=== PATIENT | male | born 1950 | race Caucasian/White ===

== ENCOUNTER 2019-06-13 10:22 | Day surgery (SDC) | payer MEDICARE, BC ==
[2019-06-13] MEDS: Polymyxin B/Trimethoprim 10 ML Bottle EYERT SCH ×4 (10:35→12:52)
[2019-06-13] MEDS: Brimonidine 0.2% Ophth Soln 5 ML Bottle EYERT SCH ×4 (10:40→12:52)
[2019-06-13] MEDS: Phenylephrine 2.5% Ophth Soln 2 ML Bot EYERT SCH ×6 (10:45→12:32)
[2019-06-13] MEDS: Tropicamide 1% Ophth Soln 15 ML Bottle EYERT SCH ×4 (10:51→11:56)
--- NOTE | 2019-06-13 11:03 | PCM.PREANE ---
Preanesthetic Assessment - Anesthesia/Transfusion/Family Hx Anesthesia History: Prior Anesthesia Without Reaction Family History of Anesthesia Reaction: No Transfusion History: No Prior Transfusion(s) Intubation History: Unknown - Review of Systems General: No Symptoms Pulmonary: No Symptoms (ETOH: few beers per week) Cardiovascular: No Symptoms (HTN), Palpitations Neurological: Numbness (bilateral feet right greater than left) Other: Reports: Sinus Problem - Physical Assessment NPO Status Date: 06/12/19 NPO Status Time: 22:00 Vital Signs: HR: 57 BP: 134/81 Temp: 16 Sat: 95% Resp: 16 Height: 1.83 m Weight: 97.522 kg ASA Class: 2 Mental Status: Alert & Oriented x3 Airway Class: Mallampati = 2 Dentition: Reports: Normal Dentition, [place](s), Caries Thyro-Mental Finger Breadths: 3 Mouth Opening Finger Breadths: 3 ROM/Head Extension: Full Lungs: Clear to Auscultation, Normal Respiratory Effort Cardiovascular: Regular Rate, Regular Rhythm, No Murmurs - Allergies Allergies/Adverse Reactions: Allergies Allergy/AdvReac Type Severity Reaction Status Date / Time No Known Allergies Allergy Verified 06/11/19 13:50 - Anesthesia Plan Pre-Op Medication Ordered: None - Acknowledgements Anesthesia Type Planned: MAC Pt an Appropriate Candidate for the Planned Anesthesia: Yes Alternatives and Risks of Anesthesia Discussed w Pt/Guardian: Yes Pt/Guardian Understands and Agrees with Anesthesia Plan: Yes PreAnesthesia Questionnaire - HOME MEDS Home Medications: Home Meds Chlorthalidone 25 mg PO DAILY 02/17/14 [History] Diltiazem [Diltiazem XR] 240 mg PO DAILY 06/11/19 [History] Fish Oil/DHA/EPA [Fish Oil 1,200 MG] 1 tab PO DAILY 06/11/19 [History] Fluticasone Propionate [Flonase] 1 spray NASBOTH DAILY 06/11/19 [History] Multivitamin [Daily Multiple Vitamin] 1 tab PO DAILY 06/11/19 [History] Olopatadine [Pataday 0.2% Ophth Soln] 1 drop EYEBOTH DAILY 06/11/19 [History] Potassium Chloride 20 meq PO DAILY 06/11/19 [History] - CURRENT (IN HOUSE) MEDS Current Meds: Current Medications Brimonidine Tartrate (Alphagan 0.2% Ophth Soln) 0 ml EYERT ASDIRECTED [facility] Stop: 06/13/19 23:00 Last Admin: 06/13/19 10:40 Dose: 1 drop Cefuroxime Sodium (Zinacef) 0 mg EYERT ASDIRECTED [facility] Stop: 06/13/19 23:00 Lidocaine HCl (Xylocaine-Mpf 1%) 1 ml INJECT ASDIRECTED [facility] Stop: 06/13/19 18:00 Phenylephrine HCl (Arturo-Synephrine 2.5% Ophth Soln) 0 ml EYERT ASDIRECTED [facility] Stop: 06/13/19 23:00 Last Admin: 06/13/19 10:56 Dose: 1 drop Pilocarpine HCl (Pilocar 4% Ophth Soln) 0 ml EYERT ASDIRECTED [facility] Stop: 06/13/19 23:00 Polymyxin/Trimethoprim Sulfate (Polytrim Ophth Soln) 0 ml EYERT ASDIRECTED [facility] Stop: 06/13/19 23:00 Last Admin: 06/13/19 10:35 Dose: 1 drop Tetracaine HCl (Tetracaine 0.5% Steri-Unit Melany) 0 ml EYERT ASDIRECTED [facility] Stop: 06/13/19 23:00 Tropicamide (Mydriacyl 1% Ophth Soln) 0 ml EYERT ASDIRECTED [facility] Stop: 06/13/19 23:00 Last Admin: 06/13/19 10:51 Dose: 1 drop
[2019-06-13] MEDS: Cefuroxime 10 MG/ML SYRINGE EYERT SCH ×2 (12:00→12:51)
[2019-06-13] MEDS: Tetracaine HCl/PF 0.5% 4 ML Bottle EYERT SCH ×3 (12:00→12:41)
[2019-06-13] MEDS: Lidocaine 1% PF 2 ML SDV INJECT SCH ×2 (12:00→12:41)
[2019-06-13] MEDS: Pilocarpine 4% Ophth Soln 15 ML Bot EYERT SCH ×2 (12:01→12:52)
--- NOTE | 2019-06-13 12:54 | PCM48HPAN ---
Post Anesthesia Note - EVALUATION WITHIN 48HRS OF ANESTHETIC Vital Signs in Normal Range: Yes Patient Participated in Evaluation: Yes Respiratory Function Stable: Yes Airway Patent: Yes Cardiovascular Function Stable: Yes Hydration Status Stable: Yes Pain Control Satisfactory: Yes Nausea and Vomiting Control Satisfactory: Yes Mental Status Recovered: Yes Vital Signs: Last Vital Signs Temp 36.2 C 06/13/19 10:30 Pulse 57 L 06/13/19 10:30 Resp 16 06/13/19 10:30 BP 134/81 06/13/19 10:30 Pulse Ox 95 06/13/19 10:30
== END 2019-06-13 13:02 | disposition home or self-care (01) ==
LOC: JD.SDS 10:22
PROVIDERS: ATTEND Ophthalmology
DX: H25.813 Combined forms of age-related cataract, bilateral (principal); H02.834 Dermatochalasis of left upper eyelid; H02.831 Dermatochalasis of right upper eyelid; H16.223 Keratoconjunctivitis sicca, not specified as Sjogren's, bilateral; H16.103 Unspecified superficial keratitis, bilateral; I10 Essential (primary) hypertension; Z87.891 Personal history of nicotine dependence
CPT/HCPCS: 66984; J0697; J2001; V2632

== ENCOUNTER 2019-07-09 07:17 | Day surgery (SDC) | payer MEDICARE, BC ==
[~2019-07-09 07:17] MED LIST: Cefuroxime 10 MG/ML SYRINGE EYELF SCH; Lidocaine 1% PF 2 ML SDV INJECT SCH; Pilocarpine 4% Ophth Soln 15 ML Bot EYELF SCH
[2019-07-09] MEDS: Polymyxin B/Trimethoprim 10 ML Bottle EYELF SCH ×3 (08:03→09:58)
[2019-07-09] MEDS: Brimonidine 0.2% Ophth Soln 5 ML Bottle EYELF SCH ×3 (08:09→09:58)
--- NOTE | 2019-07-09 08:11 | PCM.PREANE ---
Preanesthetic Assessment - Anesthesia/Transfusion/Family Hx Anesthesia History: Prior Anesthesia Without Reaction (mentioned having bradycardia during the previous cataract surgery.) Transfusion History: No Prior Transfusion(s) Intubation History: Unknown - Review of Systems General: No Symptoms Pulmonary: No Symptoms Cardiovascular: No Symptoms Gastrointestinal: No Symptoms Neurological: No Symptoms Other: Reports: None - Physical Assessment NPO Status Date: 07/09/19 NPO Status Time: 19:30 Height: 1.83 m Weight: 97.522 kg ASA Class: 2 Mental Status: Alert & Oriented x3 Airway Class: Mallampati = 2 Dentition: Reports: Normal Dentition, [place](s), Caries Thyro-Mental Finger Breadths: 3 Mouth Opening Finger Breadths: 3 ROM/Head Extension: Full Lungs: Clear to Auscultation, Normal Respiratory Effort Cardiovascular: Regular Rate, Regular Rhythm - Allergies Allergies/Adverse Reactions: Allergies Allergy/AdvReac Type Severity Reaction Status Date / Time No Known Allergies Allergy Verified 07/08/19 14:23 - Acknowledgements Anesthesia Type Planned: MAC Pt an Appropriate Candidate for the Planned Anesthesia: Yes Alternatives and Risks of Anesthesia Discussed w Pt/Guardian: Yes Pt/Guardian Understands and Agrees with Anesthesia Plan: Yes PreAnesthesia Questionnaire Cardiovascular History: Reports: Hypertension - HOME MEDS Home Medications: Home Meds Chlorthalidone 12.5 mg PO DAILY 02/17/14 [History] Diltiazem [Diltiazem XR] 240 mg PO DAILY 06/11/19 [History] Fish Oil/DHA/EPA [Fish Oil 1,200 MG] 1 tab PO DAILY 06/11/19 [History] Fluticasone Propionate [Flonase] 1 spray NASBOTH DAILY 06/11/19 [History] Multivitamin [Daily Multiple Vitamin] 1 tab PO DAILY 06/11/19 [History] Olopatadine [Pataday 0.2% Ophth Soln] 1 drop EYEBOTH DAILY 06/11/19 [History] Potassium Chloride 20 meq PO DAILY 06/11/19 [History] Dextran 70/Hypromellose [Artificial Tears] 1 drop EYEBOTH QID PRN 07/08/19 [ History] Spironolactone [Aldactone] 25 mg PO QAM 07/08/19 [History] - CURRENT (IN HOUSE) MEDS Current Meds: Current Medications Brimonidine Tartrate (Alphagan 0.2% Ophth Soln) 0 ml EYELF ASDIRECTED [facility] Stop: 07/09/19 18:00 Cefuroxime Sodium (Zinacef) 0 mg EYELF ASDIRECTED [facility] Stop: 07/09/19 18:00 Lidocaine HCl (Xylocaine-Mpf 1%) 1 ml INJECT ASDIRECTED [facility] Stop: 07/09/19 18:00 Phenylephrine HCl (Arturo-Synephrine 2.5% Ophth Soln) 0 ml EYELF ASDIRECTED [facility] Stop: 07/09/19 18:00 Pilocarpine HCl (Pilocar 4% Ophth Soln) 0 ml EYELF ASDIRECTED [facility] Stop: 07/09/19 18:00 Polymyxin/Trimethoprim Sulfate (Polytrim Ophth Soln) 0 ml EYELF ASDIRECTED [facility] Stop: 07/09/19 18:00 Last Admin: 07/09/19 08:03 Dose: 11 drop Tetracaine HCl (Tetracaine 0.5% Steri-Unit Melany) 0 ml EYELF ASDIRECTED [facility] Stop: 07/09/19 18:00 Tropicamide (Mydriacyl 1% Ophth Soln) 0 ml EYELF ASDIRECTED [facility] Stop: 07/09/19 18:00
[2019-07-09] MEDS: Phenylephrine 2.5% Ophth Soln 2 ML Bot EYELF SCH ×5 (08:15→09:39)
[2019-07-09] MEDS ORDERED: Sodium Chloride 0.9% 10 ML Syringe FLUSH PRN (08:19)
[2019-07-09] MEDS ORDERED: Lidocaine 1%/Sod Bicarbonate in NS 8.4% 1 ML Syringe IDERM PRN (08:19)
[2019-07-09] MEDS: Tropicamide 1% Ophth Soln 15 ML Bottle EYELF SCH ×4 (08:20→09:00)
[2019-07-09] MEDS ORDERED: Lactated Ringers 1,000 ML IV SCH (08:30)
[2019-07-09] MEDS: Tetracaine HCl/PF 0.5% 4 ML Bottle EYELF SCH ×2 (09:35→09:46)
--- NOTE | 2019-07-09 10:21 | PCM48HPAN ---
Post Anesthesia Note - EVALUATION WITHIN 48HRS OF ANESTHETIC Vital Signs in Normal Range: Yes Patient Participated in Evaluation: Yes Respiratory Function Stable: Yes Airway Patent: Yes Cardiovascular Function Stable: Yes Hydration Status Stable: Yes Pain Control Satisfactory: Yes Nausea and Vomiting Control Satisfactory: Yes Mental Status Recovered: Yes Vital Signs: Last Vital Signs Temp 98.2 F 07/09/19 10:04 Pulse 47 L 07/09/19 10:04 Resp 18 07/09/19 10:04 BP 127/73 07/09/19 10:04 Pulse Ox 98 07/09/19 10:04
== END 2019-07-09 10:09 | disposition home or self-care (01) ==
LOC: JD.SDS 07:17
PROVIDERS: ATTEND Ophthalmology
DX: H25.812 Combined forms of age-related cataract, left eye (principal); H40.003 Preglaucoma, unspecified, bilateral; H16.103 Unspecified superficial keratitis, bilateral; H16.223 Keratoconjunctivitis sicca, not specified as Sjogren's, bilateral; I10 Essential (primary) hypertension; Z98.41 Cataract extraction status, right eye; Z96.1 Presence of intraocular lens
CPT/HCPCS: 66984; J0697; J2001

== ENCOUNTER → 2020-06-09 | Day surgery (SDC) | payer MEDICARE, BC ==
[~2020-06-09] MED LIST changes: -Cefuroxime 10 MG/ML SYRINGE EYELF SCH; -Lidocaine 1% PF 2 ML SDV INJECT SCH; +Phenylephrine 2.5% Ophth Soln 15 ML Bot EYELF SCH; +Phenylephrine 2.5% Ophth Soln 2 ML Bot EYELF SCH; -Pilocarpine 4% Ophth Soln 15 ML Bot EYELF SCH; +Tropicamide 1% Ophth Soln 15 ML Bottle EYELF SCH
[2020-06-09] MEDS: Brimonidine 0.2% Ophth Soln 5 ML Bottle EYELF SCH ×2 (10:21→11:02)
== END ==
LOC: JD.SDS 10:25
PROVIDERS: ATTEND Ophthalmology
DX: E11.36 Type 2 diabetes mellitus with diabetic cataract (principal); H26.492 Other secondary cataract, left eye; H16.103 Unspecified superficial keratitis, bilateral; H16.223 Keratoconjunctivitis sicca, not specified as Sjogren's, bilateral; H02.834 Dermatochalasis of left upper eyelid; H02.831 Dermatochalasis of right upper eyelid; H40.003 Preglaucoma, unspecified, bilateral; I10 Essential (primary) hypertension; Z98.890 Other specified postprocedural states; Z87.891 Personal history of nicotine dependence; Z79.899 Other long term (current) drug therapy; Z96.1 Presence of intraocular lens